=== PATIENT | male | born 1945 | race Two or more races ===

== ENCOUNTER 2023-07-27 13:58 | Emergency (ER) | payer MEDICAID, OTHER ==
[~2023-07-27] VITALS: Ht 165.1 cm; Wt 64.0 kg
[2023-07-27 14:05] VITALS: O2SAT 99
[2023-07-27] MEDS ORDERED: VALA10002 MT (14:53)
[2023-07-27] MEDS ORDERED: NAPR-1176 MT (14:53)
[2023-07-27] MEDS ORDERED: LIDO700A15 TP (14:53)
[2023-07-27] MEDS ORDERED: KETOROLAC 30MG/ML VIAL IM ONE (15:00)
[2023-07-27 15:54] VITALS: BP 130/68; PULSE 80; RESP 20; TEMP 98
== END 2023-07-27 15:57 | disposition home or self-care (01) ==
LOC: ER 13:58
DX: B02.9 Zoster without complications (principal); E78.00 Pure hypercholesterolemia, unspecified; Z98.890 Other specified postprocedural states
CPT/HCPCS: 99283; 96372; J1885

== ENCOUNTER 2023-08-03 21:16 | Emergency (ER) | payer MEDICAID ==
[~2023-08-03] VITALS: Ht 162.6 cm; Wt 82.0 kg
[~2023-08-03 21:16] MED LIST: LIDO700A15 TP; NAPR-1176 MT; VALA10002 MT
[2023-08-03 21:24] VITALS: O2SAT 98
[2023-08-03] MEDS ORDERED: IBUPROFEN 600MG TABLET PO ONE (22:15)
[2023-08-03 22:45] VITALS: BP 128/73
[2023-08-04 00:01] LABS: BASOPHILS % 0.5 % (0.0-2.0); HEMATOCRIT. 49.6 % (42.0-52.0); HEMOGLOBIN. 16.8 g/dL (14.0-18.0); LYMPHOCYTES % 21.9 % (20.0-50.0); MEAN CORPUSCULAR HEMOGLOBIN 29.6 pg (28.0-32.0); MEAN CORPUSCULAR HGB CONC 33.8 g/dL (31.0-37.0); MEAN CORPUSCULAR VOLUME 87.4 fL (80.0-94.0); MEAN PLATELET VOLUME 7.4 fl (7.4-10.4); NEUTROPHILS % 62.6 % (40.0-76.0); PLATELET 268 x1000/uL (130-400); RED BLOOD CELL COUNT 5.68 mill/uL (4.7-6.1); RED CELL DISTRIBUTION WIDTH 13.9 % (11.6-14.6)
[2023-08-04 00:58] VITALS: PULSE 68; RESP 16; TEMP 98.4
== END 2023-08-04 00:58 | disposition home or self-care (01) ==
LOC: ER 21:19
DX: M79.661 Pain in right lower leg (principal); E78.00 Pure hypercholesterolemia, unspecified; I10 Essential (primary) hypertension
CPT/HCPCS: 36415; 85025; 93971; 99284